=== PATIENT | female | born 2000 | race African-American/Black ===

== ENCOUNTER 2022-01-04 23:50 | Emergency (ER) | payer MEDICAID ==
[~2022-01-04] VITALS: Ht 160 cm; Wt 65.0 kg
[2022-01-04 23:55] VITALS: BP 112/77
[2022-01-05] MEDS ORDERED: DEXAMETHASONE 10 MG/ML VIAL IM ONE (04:15)
[2022-01-05] MEDS ORDERED: AMOXICILLIN 500 MG CAPSULE PO ONE (04:15)
[2022-01-05] MEDS ORDERED: IBUPROFEN 600MG TABLET PO ONE (04:15)
[2022-01-05] MEDS ORDERED: AMOX-494 MT (05:15)
== END 2022-01-05 05:35 | disposition home or self-care (01) ==
LOC: ER 23:50
DX: J03.90 Acute tonsillitis, unspecified (principal)
CPT/HCPCS: 81025; 96372; 99283; J1100